=== PATIENT | female | born 1950 | race Caucasian/White ===

== ENCOUNTER 2016-12-30 21:27 | Emergency (ER) | payer OTHER ==
--- NOTE | ~2016-12-30 | CR150 ---
[facility] A Service of [facility] & [facility] RADIOLOGY TEXT RESULTS PATIENT: MEÑO DEGROOT LOCATION: [facility] : 52 UNIT #: [id number] AGE: [address]: Johanna May MD SEX: F ORDER DR: [id number] [facility] [address] [place], [place] [address] [id number] E MR#: [id number] #: [id number] NAME: MARIAELENA DEGROOT : 1950 SEX: F STUDY DATE/TIME: 12/30/2016 21:30 UNIT: [facility] ROOM: STUDY DESCRIPTION: CR Hip Min 2 Views Lt Attending Physician: Johanna May M.D. Ordering Physician: Johanna May M.D. Primary Care Physician: No Primary Care Physician MEDICAL IMAGING REPORT This report is preliminary unless electronic signature is present EXAM Left hip INDICATIONS Left hip pain for 2 hours after fall. FINDINGS AP view of the pelvis and a lateral view of the left hip were obtained. Bones of the pelvis and hip are normal. There are postop changes in the lumbar spine with some type of pain device present. IMPRESSION No evidence of acute injury. Dictated by... Leroy Kamara M.D. THIS IS AN ELECTRONICALLY VERIFIED REPORT Leroy Kamara M.D. at 01/01/2017 7:14 AM SANDRO/kim TD: 12/31/2016 00:22 JOB #: [id number] MEDICAL IMAGING REPORT Page 1 of 1 COPY
== END 2016-12-31 00:14 | disposition home or self-care (01) ==
LOC: CED 21:27
DX: S70.02XA Contusion of left hip, initial encounter (principal); W01.0XXA Fall on same level from slipping, tripping and stumbling without subsequent striking against object, initial encounter; Z90.710 Acquired absence of both cervix and uterus
CPT/HCPCS: 73502; 96372; 99283; J1170